=== PATIENT | female | born 1980 | race Caucasian/White ===

== ENCOUNTER 2017-06-22 23:40 | Emergency (ER) | payer MEDICAID ==
[2017-06-23] MEDS: LIDOCAINE/MYLANTA 40 ML BTL PO (04:26)
[2017-06-23 04:47] LABS: ADD UMIC YES; UR ASCORBIC ACID NEGATIVE (NEGATIVE); UR BACTERIA FEW /HPF (NONE SEEN); UR BILIRUBIN (Dip) NEGATIVE (NEGATIVE); UR BLOOD (Dip) 3+ mg/dL (NEGATIVE); UR CLARITY CLOUDY (CLEAR); UR COLOR YELLOW (YELLOW); UR GLUCOSE (Dip) NEGATIVE (NEGATIVE); UR KETONES (Dip) NEGATIVE (NEGATIVE); UR LEUKOCYTE ESTERASE (Dip) TRACE Leu/ul (NEGATIVE); UR MUCUS FEW /HPF (NONE SEEN); UR NITRITE (Dip) NEGATIVE (NEGATIVE); UR RBC > 182 /HPF (0-5); UR SPECIFIC GRAVITY (Dip) 1.027 (1.003-1.030); UR SQUAMOUS EPITHELIAL CELL FEW /HPF (FEW); UR TOTAL PROTEIN (Dip) 2+ mg/dl (NEGATIVE); UR UROBILINOGEN (Dip) 1+ mg/dL (NEGATIVE); UR WBC 11 /HPF (0-5)
[2017-06-23] MEDS: KETOROLAC 15 MG INJ IM (04:52)
[2017-06-23] MEDS: RANITIDINE 150 MG TAB PO (05:00)
== END 2017-06-23 06:10 | disposition home or self-care (01) ==
LOC: FTE 23:40
DX: K80.20 Calculus of gallbladder without cholecystitis without obstruction (principal); I10 Essential (primary) hypertension
CPT/HCPCS: 76705; 81001; 84703; 96372; 99285-25

== ENCOUNTER 2018-12-05 16:43 | Emergency (ER) | payer MEDICAID | END 2018-12-05 18:06 | disposition home or self-care (01) | LOC: FTE 16:43 | DX: H57.89 Other specified disorders of eye and adnexa (principal); I10 Essential (primary) hypertension | CPT/HCPCS: 99282; Z7502 ==